=== PATIENT | female | born 1960 | race Caucasian/White ===

== ENCOUNTER 2018-10-24 23:34 | Emergency (ER) | payer OTHER ==
[~2018-10-24] VITALS: Ht 165.1 cm; Wt 69.8 kg
[2018-10-24 23:41] VITALS: Ht 165.1 cm; Wt 69.8 kg
[2018-10-25] MEDS ORDERED: SOD CHLORIDE 0.9% 500 ML IV STA (02:16)
--- NOTE | 2018-10-25 04:32 | ERD ---
ER Documentation Chief Complaint Chief Complaint p 1min syncopal ep x1 tonight. dizzy. mid CP /10, 'sharp', reproducible. HPI This is a 58-year-old female with [employer] tonight. She complains of mild chest pain with this syncope. She said the chest pain however she reproduced with touch. Mild to moderate in intensity. No focal neurological complaints. No weakness. No visual acuity changes. ROS All systems reviewed and are negative except as per history of present illness. Allergies Allergies: Coded Allergies: No Known Allergy (Unverified , 10/24/18) PMhx/Soc History of Surgery: Yes (gall bladder & ovaries removal) Anesthesia Reaction: No Hx Neurological Disorder: No Hx Respiratory Disorders: No Hx Cardiac Disorders: No Hx Miscellaneous Medical Probl: No Hx Alcohol Use: Yes (a glass of wine every night) Hx Substance Use: No Hx Tobacco Use: No Smoking Status: Never smoker Physical Exam Vitals Vital Signs Date Temp Pulse Resp B/P (MAP) Pulse Ox O2 O2 Flow FiO2 Time Delivery Rate 10/25/18 78 16 128/71 100 Room Air 02:09 (90) 10/24/18 97.2 87 18 146/79 100 23:41 (101) Physical Exam Const: No acute distress Head: Atraumatic Eyes: Normal Conjunctiva ENT: Normal External Ears, Nose and Mouth. Neck: Full range of motion. No meningismus. Resp: Clear to auscultation bilaterally Cardio: Regular rate and rhythm, no murmurs Abd: Soft, non tender, non distended. Normal bowel sounds Skin: No petechiae or rashes Back: No midline or flank tenderness Ext: No cyanosis, or edema Neur: Awake and alert Psych: Normal Mood and Affect Result Diagram: 10/25/18 0230 10/25/18 0230 Results 24 hrs Laboratory Tests Test 10/25/18 02:30 10/25/18 02:36 White Blood Count 5.9 10^3/ul Red Blood Count 4.92 10^6/ul Hemoglobin 13.0 g/dl Hematocrit 40.4 % Mean Corpuscular Volume 82.1 fl Mean Corpuscular Hemoglobin 26.4 pg Mean Corpuscular Hemoglobin Concent 32.2 g/dl Red Cell Distribution Width 12.2 % Platelet Count 177 10^3/UL Mean Platelet Volume 10.9 fl Immature Granulocytes % 0.200 % Neutrophils % 58.2 % Lymphocytes % 34.3 % Monocytes % 5.7 % Eosinophils % 1.3 % Basophils % 0.3 % Nucleated Red Blood Cells % 0.0 /100WBC Immature Granulocytes # 0.010 10^3/ul Neutrophils # 3.5 10^3/ul Lymphocytes # 2.0 10^3/ul Monocytes # 0.3 10^3/ul Eosinophils # 0.1 10^3/ul Basophils # 0.0 10^3/ul Nucleated Red Blood Cells # 0.0 10^3/ul Sodium Level 144 mmol/L Potassium Level 4.1 mmol/L Chloride Level 107 mmol/L Carbon Dioxide Level 28 mmol/L Anion Gap 9 Blood Urea Nitrogen 11 mg/dl Creatinine 0.48 mg/dl Est Glomerular Filtrat Rate mL/min > 60 mL/min Glucose Level 117 mg/dl Calcium Level 10.6 mg/dl Troponin I < 0.012 ng/ml Bedside Glucose 120 mg/dL Current Medications Medications Dose Sig/Los Start Time Status Last (Trade) Ordered Route PRN Stop Time Admin Dose Reason Admin Sodium 500 ml @ Q1H STAT 10/25/18 DC 10/25/18 Chloride 500 mls/hr IV 02:16 02:42 10/25/18 03:15 Procedures/MDM EKG: Rate/Rhythm: [Normal Sinus Rhythm] QRS, ST, T-waves: [No changes consistent w/ acute ischemia] Impression: [No evidence of ischemia or arrhythmia] Chest X-ray 1V Interpreted by me: Soft Tissue: No acute abnormalities Bones: No acute abnormalities Mediastinum/Cardiac Silhouette/Lungs: [No acute abnormalities] CT of the head was read as negative by radiologist. Please see his full dictation full report Medical decision making: Patient's syncopal symptoms are unstable at this time and require inpatient workup. No evidence of PE or dissection at this time but occult ischemia or fatal dysrhythmia cannot be ruled out. Departure Diagnosis: Primary Impression: Syncope Syncope type: unspecified Qualified Codes: R55 - Syncope and collapse Additional Impression: Chest pain Chest pain type: unspecified Qualified Codes: R07.9 - Chest pain, unspecified Condition: Serious AARONERWINMENDYELTONReyna Oct 25, 2018 04:32
--- NOTE | 2018-10-25 09:39 | PDOCDIS ---
Discharge Instructions CONDITION [id number] Patient Condition: [id number] Good HOME CARE INSTRUCTIONS: Iopin0Pd Diet Instructions: Aqoao1s Regular ACTIVITY: [id number] Activity Restrictions: Ckbce0c No Restrictions FOLLOW UP/APPOINTMENTS Follow-up Plan pcp 1 week OTHER ORDERS: Other Orders: avoid taking LAZARO Nuñez MD Oct 25, 2018 09:39
--- NOTE | 2018-10-25 13:18 | HP ---
DATE OF ADMISSION: 10/24/2018 CHIEF COMPLAINT: Syncope. HISTORY OF PRESENT ILLNESS: A 58-year-old female with unremarkable past medical history who presente d to emergency room with complaint of a syncopal episode. The patient also reports on and off chest pressure. No shortness of breath. No nausea, vomiting, or diaphoresis. She also reports occasional dyspnea on exertion when going up the stairs. The patient took 6 tablets of valerian root prior to t he onset of syncope. Initial evaluation was unremarkable. Labs were all within normal limits. There were no EKG changes. CAT scan of the brain was unremarkable. PAST MEDICAL HISTORY: Hypothyroidism. MEDICATIONS PRIOR TO ADMISSION: Thyroid supplement. SOCIAL HISTORY: The patient lives at home. She denies tobacco or alcohol use. PHYSICAL EXAMINATION: GENERAL: Well-developed, well-nourished female who is in no apparent distress. VITAL SIGNS: Stable. She is afebrile. HEENT: Extraocular muscles intact. Pupils equal and reactive to light bilaterally. Sclerae are ani cteric. Oropharynx is clear and moist. NECK: Supple, no JVD, no carotid bruits. LUNGS: Clear to auscultation bilaterally. CARDIAC: Regular rate and rhythm. No murmurs, rubs or gallops. CHEST: Tender to palpation over the midsternal region. ABDOMEN: Soft, nontender, nondistended, normoactive bowel sounds. EXTREMITIES: No clubbing, cyanosis, or edema. NEUROLOGICAL: Nonfocal. ASSESSMENT: 1. A 58-year-old female presenting with syncopal episodes. This was not witnessed. 2. Chest pain. Rule out coronary ischemia. 3. Hypothyroidism, on thyroid supplement. ASSESSMENT AND PLAN: 1. Place in tele observation, repeat troponin. 2. Proceed with Lexiscan stress test if second troponin is within normal limits. 3. Discharge planning if stress test is unremarkable. Dictated By: LAZARO GAVIN/ДМИТРИЙ Conf#: [id number] DID#: [id number] CC: ABIGAIL ESTRADA;*EndCC*
[2018-10-25] MEDS ORDERED: REGADENOSON 0.4 MG/5 ML SYG ONE (14:24)
--- NOTE | 2018-10-25 16:31 | SP ---
DATE OF PROCEDURE: INDICATION: Chest pain. IMPRESSION: 1. Baseline EKG reveals normal sinus rhythm. 2. Normal clinical response. 3. No EKG changes, consider ischemia. 4. No arrhythmias. 5. Images are pending. Dictated By: SIVA HERRERA MD MS/ДМИТРИЙ Conf#: [id number] DID#: [id number] CC: ABIGAIL ESTRADA;*EndCC*
--- NOTE | 2018-10-25 16:50 | RADRPT ---
Echocardiogram Report Patient Name: GRETEL MARTINPatient ID: [id number] : 1960 (58y 3m)Study Date: 10/25/2018 3:37:38 PM Gender: FAccession #: [id number] Tech: Edgard Lynn RDCS Location: EKG Ref.Physician: SIVA BARBA Height(Cm): BSA: Weight(Kg): Quality: AdequateAccount #: Procedures: Echocardiographic Report: Transthoracic echocardiogram with complete 2D, M-Mode, and doppler examination. Indications: Chest Pain. Measurements: 2D/M Mode Doppler Measurement Value Normal Range Measurement Value Normal Range LVIDd 2D 3.9 [ 3.8 - 5.2 ] cm AV Peak Josias 1.3 [ 100.0 - 170.0 ] cm/sec LVIDs 2D 2.9 [ 2.2 - 3.5 ] cm AV Peak PG 7.0 [ 2.0 - 9.0 ] mmHg LVPWd 2D 0.9 [ 0.6 - 0.9 ] cm LVOT Peak Josias 1.0 [ 70.0 - 110.0 ] cm/sec IVSd 2D 1.0 [ 0.6 - 0.9 ] cm LVOT Peak PG 4.0 [ 2.0 - 6.0 ] mmHg AoR Diam 2D 2.8 [ 2.3 - 3.1 ] cm MV E Peak Josias 0.8 [ 60.0 - 130.0 ] cm/sec EDV 2D 65.5 [ 46.0 - 106.0 ] ml MV A Peak Josias 0.9 [ 100.0 - 120.0 ] cm/sec ESV 2D 33.0 [ 14.0 - 42.0 ] ml MV E/A 0.9 [ 0.8 - 1.5 ] ratio EF 2D 49.6 [ 54.0 - 74.0 ] percent MV Decel Time 236 [ 104 - 258 ] msec LA Dimen 2D 2.9 [ 2.7 - 3.8 ] cm Lat E` Josias 0.1 [ 10.0 - 15.0 ] cm/sec Lateral E/E` 10.4 [ 1.0 - 2.0 ] ratio MV E/A 0.9 [ 0.8 - 1.5 ] ratio TR Peak Josias 2.0 [ 100.0 - 280.0 ] cm/sec TR Peak PG 16.0 mmHg RVSP 19.0 [ 10.0 - 36.0 ] mmHg RA Pressure 3.0 mmHg Findings: Left Ventricle: Normal left ventricular systolic function. Normal left ventricular cavity size. Normal left ventricular wall thickness. Ejection fraction is visually estimated at 65 %. Tissue Doppler/Mitral Doppler indices are consistent with impaired relaxation (Stage I diastolic dysfunction). Right Ventricle: Normal right ventricular size. Normal right ventricular systolic function. Left Atrium: The left atrium is normal in size. Right Atrium: The right atrium is normal in size. Mitral Valve: Normal appearance and function of the mitral valve with trace physiologic regurgitation. Aortic Valve: Normal appearance of the aortic valve. No significant aortic stenosis or insufficiency. Tricuspid Valve: Normal appearance of the tricuspid valve. Estimated peak PA systolic pressure 19 mmHg. There is trace tricuspid regurgitation. Pulmonic Valve: Pulmonic valve not well visualized. Pericardium: Normal pericardium with no significant pericardial effusion. Aorta: Normal aortic root. IVC: Normal size and normal respiratory collapse consistent with normal right atrial pressure. Conclusions: Normal left ventricular systolic function. Normal left ventricular cavity size. Normal left ventricular wall thickness. Ejection fraction is visually estimated at 65 %. Tissue Doppler/Mitral Doppler indices are consistent with impaired relaxation (Stage I diastolic dysfunction). Normal appearance and function of the mitral valve with trace physiologic regurgitation. Normal appearance of the aortic valve. No significant aortic stenosis or insufficiency. Normal appearance of the tricuspid valve. Estimated peak PA systolic pressure 19 mmHg. There is trace tricuspid regurgitation. Pulmonic valve not well visualized. Normal pericardium with no significant pericardial effusion. Normal right ventricular size. Normal right ventricular systolic function. The left atrium is normal in size. The right atrium is normal in size. Normal aortic root. Normal size and normal respiratory collapse consistent with normal right atrial pressure. Electronically Signed By: Siva Barba 2018-10-25 16:50:12 PDT
[2018-10-25 17:51] VITALS: BP 108/77; PULSE 76; RESP 19
== END 2018-10-25 17:55 | disposition home or self-care (01) ==
LOC: E/R 23:34 → CANBEDREQ 10-25 19:30
DX: R55 Syncope and collapse (principal); R07.9 Chest pain, unspecified
CPT/HCPCS: 36415; 70450; 71045; 78452; 80048; 82962; 84484; 85025; 93005; 93017; 93306; 99285; A9500; A9505; J2785; J7040